=== PATIENT | female | born 1985 | race Caucasian/White ===

== ENCOUNTER 2022-03-25 10:38 | Emergency (ER) | payer MEDICAID ==
[~2022-03-25] VITALS: Ht 167.6 cm; Wt 79.0 kg
[2022-03-25 10:40] VITALS: BP 131/83
--- NOTE | 2022-03-25 10:53 | NUR ---
PT AMB TO BED 9.
[2022-03-25] MEDS ORDERED: INSULIN REGULAR, HUMAN 100 UNIT/ML VIAL SUBQ ONE (11:30)
[2022-03-25] MEDS ORDERED: IBUPROFEN 600 MG TAB PO ONE (11:30)
[2022-03-25] MEDS ORDERED: ACETAMINOPHEN EXTRA STRENGTH 500 MG TAB PO ONE (11:30)
--- NOTE | 2022-03-25 11:52 | NUR ---
christopher and influenza swabbed at this time and given to ashish hall
--- NOTE | 2022-03-25 11:53 | NUR ---
36 y/o female bib self from [facility], c/o high blood sugar reading of 518 today with left chest pain radiates to left arm for 3 days. pt also c/o cough, body aches, and lugo for a week. pt states she tested negative today for covid. skin is pink/warm/dry. a&o x4 with even and steady gait. lungs clear bl, heart rate even and regular. vss. patient positioned for comfort. hob elevated. bed down. ermd made aware of pt. pmh: dm2, lupus, angina allergy: amoxicillin
[2022-03-25 11:54] LABS: BASOPHILS # (AUTO) 0.1 K/uL (0.00-0.22); BASOPHILS % (AUTO) 0.9 % (0.0-2.0); EOSINOPHILS # (AUTO) 0.3 K/uL (0-0.4); EOSINOPHILS % (AUTO) 3.8 % (0.0-4.0); HEMATOCRIT 34.1 % (36-48); HEMOGLOBIN 11.2 g/dL (12.0-16.0); LYMPHOCYTES % (AUTO) 23.6 % (20.5-51.1); MEAN CORPUSCULAR HEMOGLOBIN 29 pg (27-31); MEAN CORPUSCULAR HGB CONC 33 g/dL (33-37); MEAN CORPUSCULAR VOLUME 86.4 fL (80-94); MONOCYTES # (AUTO) 0.6 K/uL (0.8-1.0); MONOCYTES % (AUTO) 6.7 % (1.7-9.3); NEUTROPHILS # (AUTO) 5.5 K/uL (1.8-7.7); PLATELET COUNT (AUTO) 365 K/uL (140-450); RED BLOOD CELL COUNT(AUTO) 3.94 MIL/uL (4.20-5.40); RED CELL DISTRIBUTION WIDTH 15.3 % (11.6-13.7); WHITE BLOOD COUNT (AUTO) 8.4 K/uL (4.8-10.8)
[2022-03-25 12:06] LABS: ANION GAP 13.3 (8-16); CARBON DIOXIDE 23.5 mmol/L (21-32); CREATININE 0.7 mg/dL (0.6-1.3); POTASSIUM 3.8 mmol/L (3.5-5.1)
[2022-03-25] MEDS ORDERED: METF-1253 PO (12:46)
[2022-03-25 13:00] VITALS: BP 131/83
--- NOTE | 2022-03-25 13:08 | NUR ---
Patient discharged with v/s stable. Written and verbal after care instructions given and explained. Patient alert, oriented and verbalized understanding of instructions. Ambulatory with steady gait. All questions addressed prior to discharge. ID band removed. Patient advised to follow up with PMD. Rx of metformin (sent) given. Patient educated on indication of medication including possible reaction and side effects. Opportunity to ask questions provided and answered.
== END 2022-03-25 13:08 | disposition home or self-care (01) ==
LOC: MED 10:38
DX: E11.65 Type 2 diabetes mellitus with hyperglycemia (principal); Z20.822 Contact with and (suspected) exposure to COVID-19; Z79.4 Long term (current) use of insulin; Z79.899 Other long term (current) drug therapy; Z72.89 Other problems related to lifestyle; Z98.890 Other specified postprocedural states
CPT/HCPCS: 36415; 71045; 80048; 81002; 82948; 84484; 85025; 87426; 87804; 93005; 96372; 99285; J1815